=== PATIENT | female | born 1960 | race Caucasian/White ===

== ENCOUNTER 2017-02-21 19:34 | Emergency (ER) | payer BC ==
[~2017-02-21] VITALS: Ht 157.5 cm; Wt 87.5 kg
[~2017-02-21 19:34] MED LIST: FOLI-49 PO; HYDR25TA6 PO; LORA1TAB PO; MELO-216 PO; MET25 PO; PANT40TA4 PO; PARO30TA68 PO; PRAV20TA63 PO; PRED10TA PO; SULF500T36 PO; [UNRECOGNIZED DRUG - OTHER] PO
[2017-02-21 19:50] VITALS: Ht 157.5 cm; Wt 87.5 kg
[2017-02-21] MEDS ORDERED: SOD CHLORIDE 0.9% 1,000 ML IV STA (21:25)
[2017-02-21] MEDS ORDERED: ACETAMINOPHEN 325 MG TAB PO STA (21:25)
--- NOTE | 2017-02-21 21:25 | ERD ---
ER Documentation Chief Complaint Date/Time DATE: 02/21/17 TIME: 21:21 Chief Complaint dizziness x 5 days HPI dizziness described as the room spinning x 5 days, symptoms are reproducible with position, : bending forward or supine. pt reports a headache denies n/v denies hx of vertigo, reports HTN, denies cp, SOB, Palpations ROS All systems reviewed and are negative except as per history of present illness. Medications Home Meds Reported Medications Prednisone* (Prednisone*) 10 Mg Tab, 10 MG PO, TAB 04/23/15 Folic Acid* (Folic Acid*) 1 Mg Tablet, 1 MG PO DAILY, TAB 04/23/15 Meloxicam* (Meloxicam*) 7.5 Mg Tablet, 15 MG PO DAILY, TAB 04/23/15 [Hydrochloroquine Sul] No Conflict Check, 200 MG PO 04/23/15 Sulfasalazine (Sulfasalazine Dr) 500 Mg Tablet.dr, 500 MG PO 04/23/15 Pantoprazole* (Pantoprazole*) 40 Mg Tablet.dr, 40 MG PO AC BREAKFAST, TAB 04/23/15 Methotrexate* (Methotrexate*) 2.5 Mg Tab, 2.5 MG PO WEEKLY, TAB 04/23/15 Pravastatin Sodium* (Pravastatin Sodium*) 20 Mg Tablet, 20 MG PO HS, TAB 04/23/15 Paroxetine Hcl* (Paroxetine*) 30 Mg Tablet, 30 MG PO HS, TAB 04/23/15 Hydrochlorothiazide* (Hydrochlorothiazide*) 25 Mg Tab, 25 MG PO DAILY, TAB 04/23/15 Lorazepam* (Lorazepam*) 1 Mg Tablet, 1 MG PO BID Y for ANXIETY, TAB 04/23/15 Allergies Allergies: Coded Allergies: No Known Drug Allergy (Verified Allergy, Unknown, 02/21/17) PMhx/Soc History of Surgery: Yes (CHOLECYSTECTOMY, VENTRAL HERNIA X2) Anesthesia Reaction: No Hx Neurological Disorder: No Hx Respiratory Disorders: No Hx Cardiac Disorders: Yes (HTN, HYPERLIPID) Hx Psychiatric Problems: Yes (ANXIETY, DEPRESSION) Hx Miscellaneous Medical Probl: Yes (RA) Hx Alcohol Use: Yes (OCCASIONAL) Hx Substance Use: No Hx Tobacco Use: No Smoking Status: Never smoker Physical Exam Vitals Vital Signs Date Time Temp Pulse Resp B/P Pulse Ox O2 Delivery O2 Flow Rate FiO2 02/21/17 19:50 97.6 74 20 140/84 100 Physical Exam Const: [] Head: Atraumatic Eyes: Normal Conjunctiva ENT: Normal External Ears, Nose and Mouth. Neck: Full range of motion..~ No meningismus. Resp: Clear to auscultation bilaterally Cardio: Regular rate and rhythm, no murmurs Abd: Soft, non tender, non distended. Normal bowel sounds Skin: No petechiae or rashes Back: No midline or flank tenderness Ext: No cyanosis, or edema Neur: Awake and alert Psych: Normal Mood and Affect Result Diagram: 02/21/17220602/21/172206 Results 24 hrs Laboratory Tests Test 02/21/17 22:07 White Blood Count 8.610^3/ul Red Blood Count 4.4810^6/ul Hemoglobin 12.9g/dl Hematocrit 40.1% Mean Corpuscular Volume 89.5fl Mean Corpuscular Hemoglobin 28.8pg Mean Corpuscular Hemoglobin Concent 32.2g/dl Red Cell Distribution Width 14.6% Platelet Count 31317^3/UL Mean Platelet Volume 10.8fl Neutrophils % 55.7% Lymphocytes % 34.3% Monocytes % 7.5% Eosinophils % 1.3% Basophils % 0.9% Nucleated Red Blood Cells % 0.0/100WBC Neutrophils # 4.810^3/ul Lymphocytes # 2.910^3/ul Monocytes # 0.610^3/ul Eosinophils # 0.110^3/ul Basophils # 0.110^3/ul Nucleated Red Blood Cells # 0.010^3/ul Prothrombin Time 12.3Sec Prothrombin Time Ratio 1.0 INR International Normalized Ratio 0.91 Activated Partial Thromboplast Time 30.9Sec Sodium Level 137mmol/L Potassium Level 3.5mmol/L Chloride Level 100mmol/L Carbon Dioxide Level 29mmol/L Anion Gap 12 Blood Urea Nitrogen 13mg/dl Creatinine 0.53mg/dl Glucose Level 98mg/dl Calcium Level 9.4mg/dl Troponin I < 0.012ng/ml Current Medications Medications (Trade) Dose Ordered Sig/Pieter Route PRN Reason Start Time Stop Time Status Last Admin Dose Admin Sodium Chloride (NS) 1,000 ml @ 1,000 mls/hr Q1H STAT IV 02/21/17 21:25 02/21/17 22:24 DC 02/21/17 22:03 Acetaminophen (Tylenol Tab) 650 mg ONCE STAT PO 02/21/17 21:25 02/21/17 21:28 DC 02/21/17 21:45 Meclizine HCl (Antivert) 25 mg ONCE ONCE PO 02/21/17 21:30 02/21/17 21:31 DC 02/21/17 21:45 Interpretation text CBC shows no evidence of hemorrhage or infection Chemistry shows no evidence of significant electrolyte abnormalities or renal insufficiency Liver function tests shows no evidence of acute biliary or hepatic dysfunction Coagulation study showed no concerning coagulpathy Lipase shows no evidence of acute pancreatitis Cardiac biomarkers show no evidence of acute myocardial injury or coronary ischemia . Procedures/MDM This 56-year-old woman presents to emergency department today for evaluation of dizziness and headache dizziness is described as spinning and positional, worse with leaning forward or in supine position. Patient reports headache is bilaterally temporal, denies change in vision. Nausea or vomiting. Shortness of breath, chest pain, or palpitations. Patient reports history of hypertension , denies hyperlipidemia, or diabetes. I have low suspicion for CVA. Patient is neurologically intact given patient's age and complaints she will receive a full evaluation. EKG as read by S rhythm with a ventricular rate of 68 bpm. Diagnostic laboratory values reveal no anemia or acute infection, no coagulopathy or bleeding disorder. No cardiovascular ischemia, troponins normal. Second troponin is not indicated. Chemistry shows no electrolyte imbalance or renal insufficiency, no pancreatitis, or hepatitis. Patient's CAT scan without contrast radiology findings no intracranial hemorrhage or acute intracranial abnormality. Remote lacunar infarct versus dilated perivascular space of the left sub-tonsillar region. MRI may be considered for further evaluation. Patient treated with a liter of normal saline, meclizine, and Tylenol. Patient reports improvement of symptoms after treatment. Plan to discharge patient home with meclizine. Follow-up with primary care physician for evaluation of migraines, okay to use Tylenol for headache symptoms. Patient is stable with no new complaints during ER course, clinically there is no current evidence to suggest meningitis, sepsis, acute abdomen, ACS , subarachnoid bleed, subdural hematoma, CVA.or any other emergent condition appearing to require further evaluation or hospitalization. I feel the patient is stable for discharge at this time. I have discussed results, examination findings, the treatment plan with the patient and family present prior to discharge. Indications for emergent reevaluation, side effects of medication were also discussed. All questions were answered. Patient verbalizes understanding and agrees with plan of care. Departure Diagnosis: Primary Impression: Headache Headache type: unspecified Headache chronicity pattern: episodic headache Intractability: not intractable Qualified Code: R51 - Nonintractable episodic headache, unspecified headache type Additional Impression: Vertigo Patient Instructions: Self-Care for Headaches, Vertigo, Unspecified [facility] Additional Instructions: Thank you for for coming to [facility] for your care today. Please ask your nurse or provider if you have questions about your care today and do not leave until all your questions have been answered. Please use any medications given as directed and follow-up with your doctor (or the doctor you were referred to) in the next 2-3 days. If you do not have a primary care doctor you may follow up at the [facility] - [place], [place] (listed below). You may also use motrin and tylenol as needed for fever and/or pain unless instructed otherwise by your provider or nurse. Indications for more urgent follow-up have been discussed, but you may return to the Emergency Department at ANY time for any worrisome or worsening symptoms. If you have abdominal pain, please know that no test or exam you received is perfect and you should follow up within 8 hours for continued pain. If you had any imaging studies today, such as an X-Ray or CT Scan, these studies will be reviewed later by a radiologist. You will be called if there are important findings that were not identified today, so make sure the contact information you provided at registration is correct. If you received any narcotic pain control medicine today, such as Vicodin, Morphine or Dilaudid, your coordination and judgment may be affected for a number of hours. Please do not drive or operate heavy machinery, and you may want someone to assist you at home. If you were given a prescription for narcotic medication, be aware that it is very addictive- use sparingly and only if necessary. ZENA BAXTER Feb 21, 2017 21:25
[2017-02-21] MEDS ORDERED: MECLIZINE 12.5 MG TAB PO ONE (21:30)
--- NOTE | 2017-02-21 22:14 | RADRPT ---
PROCEDURE: CT Brain without contrast. CLINICAL INDICATION: Headache TECHNIQUE: A multiplanar CT of the brain was performed on a CT scanner utilizing axial imaging fro m the skull base through the vertex without IV contrast. The CTDIvol is 42.69 mGy and the DLP is 72 0.23 mGycm. One or more of the following dose reduction techniques were utilized: Automated exposu re control, adjustment of the mA and/or kV according to patient size, use of iterative reconstructio n technique. COMPARISON: None FINDINGS: No evidence of intracranial hemorrhage or abnormal extra-axial fluid collection. The brain parenchyma is normal attenuation morphology with preservation of sanches white differentiatio n and age appropriate size of the ventricles and subarachnoid spaces. Remote lacunar infarct versus dilated perivascular space in the left sub insular region. The basal cisterns, posterior fossa contents, brainstem, craniocervical junction, orbits, pituitary axis, paranasal sinuses, mastoid air cells, and calvarium are unremarkable. IMPRESSION: 1. No intracranial hemorrhage or acute intracranial abnormality. 2. Remote lacunar infarct versus dilated perivascular space of the left sub insular region. MRI may be considered for further evaluation. RPTAT:AAJJ Physician Brian Date Time Electronically viewed and signed by Physician Brian on 02/21/2017 22:14 PARVEZ/
[2017-02-21 22:31] LABS: BASOPHIL # 0.1 10^3/ul (0.0-0.1); BASOPHILS % 0.9 % (0.0-2.0); EOSINOPHILS # 0.1 10^3/ul (0.0-0.5); EOSINOPHILS % 1.3 % (0.0-7.0); HEMATOCRIT 40.1 % (37.0-47.0); HEMOGLOBIN 12.9 g/dl (12.0-16.0); LYMPHOCYTES # 2.9 10^3/ul (0.8-2.9); LYMPHOCYTES % 34.3 % (15.0-51.0); MEAN CORPUSCULAR HEMOGLOBIN 28.8 pg (29.0-33.0); MEAN CORPUSCULAR HGB CONC 32.2 g/dl (32.0-37.0); MEAN CORPUSCULAR VOLUME 89.5 fl (82.0-101.0); MEAN PLATELET VOLUME 10.8 fl (7.4-10.4); MONOCYTE # 0.6 10^3/ul (0.3-0.9); MONOCYTES % 7.5 % (0.0-11.0); NEUTROPHIL # 4.8 10^3/ul (1.6-7.5); NEUTROPHILS % 55.7 % (39.0-77.0); PLATELET COUNT 271 10^3/UL (140-415); RED BLOOD COUNT 4.48 10^6/ul (4.20-5.40); RED CELL DISTRIBUTION WIDTH 14.6 % (11.5-14.5); WHITE BLOOD COUNT 8.6 10^3/ul (4.8-10.8)
[2017-02-21 22:50] LABS: INR 0.91; PROTIME 12.3 Sec (12.2-14.2)
[2017-02-21 22:51] LABS: PARTIAL THROMBOPLASTIN TIME 30.9 Sec (25.0-35.0)
[2017-02-21 22:53] LABS: ANION GAP 12 (8-16); BLOOD UREA NITROGEN 13 mg/dl (7-20); CALCIUM 9.4 mg/dl (8.4-10.2); CARBON DIOXIDE 29 mmol/L (21-31); CHLORIDE 100 mmol/L (97-110); CREATININE 0.53 mg/dl (0.44-1.00); GLUCOSE 98 mg/dl (70-220); POTASSIUM 3.5 mmol/L (3.5-5.1); SODIUM 137 mmol/L (135-144)
[2017-02-21 23:05] LABS: TROPONIN-I < 0.012 ng/ml (0.00-0.12)
[2017-02-21] MEDS ORDERED: ACET500C5 PO (23:37)
[2017-02-21] MEDS ORDERED: MECL12.574 PO (23:37)
[2017-02-21 23:53] VITALS: BP 153/85; PULSE 68; RESP 18; TEMP 97.7
== END 2017-02-21 23:55 | disposition home or self-care (01) ==
LOC: FTE 19:34
DX: R51 Headache (principal); I10 Essential (primary) hypertension
CPT/HCPCS: 70450; 80048; 84484; 85025; 85610; 85730; 93005; 99285; J7030; Z7610